=== PATIENT | female | born 1955 | race Caucasian/White ===

== ENCOUNTER 2018-12-01 09:43 | Observation (INO) ==
[2018-12-01] MEDS ORDERED: Lactated Ringers 1,000 ML PRIMARY IV ONE (09:53)
[2018-12-01] MEDS ORDERED: ONDANSETRON 4 MG/2 ML VIAL IVP ONE (09:53)
[2018-12-01] MEDS ORDERED: MORPHINE SULFATE 4 MG/1 ML IVP ONE (09:53)
[2018-12-01] MEDS ORDERED: Acetaminophen 1000mg Inj 1,000 MG/100 ML VIAL IV PRN (10:00)
--- NOTE | 2018-12-01 10:00 | PDOC ---
Abdomen/Flank HPI - General Chief Complaint: Abdomen Pain Stated Complaint: LLQ PAIN Date Seen by Provider: 12/01/18 Time Seen by Provider: 09:45 Source: POSITIVE: Patient Exam Limitations: POSITIVE: No limitations Nurse's Notes Reviewed & Considered: Yes - Record Incomplete EMS Report Reviewed & Considered: Verbal - History of Present Illness Initial Comments: 63-year-old female presents Emergency Department with complaints of left lower quadrant abdominal pain for the past 2 days. It is progressively getting worse. She reports nausea and vomiting with this pain. She has had 2 episodes of vomiting in the last 24 hours. Patient initially went to the urgent care clinic and they sent her to the emergency department via ambulance. In the urgent care, they did a urine dip which showed blood and leukocytes. She denies fevers or chills. She denies rhinorrhea/congestion/earache/sore throat. She denies chest pain/shortness of breath/cough. She denies diarrhea or constipation. She denies history of kidney stones. Body Location Affected: REPORTS: Abdomen Timing: REPORTS: Constant, Getting Worse Duration: >24 hours (2 days) Severity: Severe Quality: REPORTS: Cramping, Sharpness, Throbbing Abdominal Pain Onset Location: REPORTS: RLQ Abdominal Pain Radiation: REPORTS: No radiation Modifying Factors: improves with: Vomiting, Urinating. worse with: Defecating Associated Symptoms: REPORTS: Nausea, Vomiting, Dysuria. DENIES: Chest pain, Fever, Grossly Bloody Diarrhea, Diarrhea, Mucous Diarrhea Similar Symptoms Previously: No Recent Care Received: REPORTS: Denies - Patient Home Medications Home Medications: Home Medications NK 04/12/18 - Patient Allergies Allergies/Adverse Reactions: Allergies Allergy/AdvReac Type Severity Reaction Status Date / Time Penicillins Allergy Headache Verified 12/01/18 10:10 PAIN MEDS AdvReac Intermediate Nausea and Uncoded 12/01/18 10:10 Vomiting Past Medical History - heen HEENT History: Denies History Cardiovascular History: Denies History Respiratory History: Denies History Genitourinary History: Denies History Endocrine History: Denies History Musculoskeletal History: Denies History Neurological History: Denies History Blood Disorders: Denies History Psychiatric History: Denies History Female Reproductive History: Breast Surgery (include type of surgery in additional comments) (massectomy with reconstruction for cancer) Cancer History: Breast Tobacco Use: Never Smoker Alcohol Use: Rarely Type of alcohol normally used: Wine In the Past 12 Months, Have Used or Abuse Any Substance: None Previous Surgical History: Yes Type / Date of Surgery: appy, massectomy, breast reconstruction ROS - Limitations ROS Limitations: No Limitations Constitution: REPORTS: Denies Symptoms Cardiovascular: REPORTS: Denies Cardiac Symptoms Respiratory: REPORTS: Denies Resp Symptoms Neurological: REPORTS: Denies Neuro Symptoms Gastrointestinal: REPORTS: Abdominal Pain, Nausea, Vomitting. DENIES: Diarrhea, Constipation Endocrine: REPORTS: Denies Symptoms Musculoskeletal: REPORTS: Denies MS Symptoms Genitourinary: REPORTS: Dysuria. DENIES: Discharge, Flank Pain, Hematuria, Difficulty Urinating Eyes: REPORTS: Denies Symptoms ENT: REPORTS: Denies Symptoms Skin: REPORTS: Denies Skin Symptoms Lympathic: REPORTS: Denies Lympathic Symptoms Immunologic: POSITIVE: Denies Symptoms Psychiatric: POSITIVE: Denies Psych Symptoms Abdominal/Flank Pain PE - General Appearance General Appearance: POSITIVE: Alert, Cooperative, No Evidence of Trauma, Severe Distress - HEENT HEENT: POSITIVE: Head Inspection Nml, Eyes Inspection Nml, Ears Inspection Nml, Nose Inspection Nml, Pharynx Inspect. Nml, PERRL, EOMI, Dry Mucous Membranes - Neck Neck: POSITIVE: Normal Inspection, No Apparent Injury - Respiratory Respiratory: POSITIVE: No Respiratory Distress, Breath Sounds Normal, Chest Non- Tender - Cardiovascular Cardiovascular: POSITIVE: Regular Rate and Rhythm, Heart Sounds Normal, Equal Pulses Peripheral Pulses: Radial (R): 2+, Radial (L): 2+ - Chest Chest: POSITIVE: Non Tender - Abdomen Abdomen: Soft: (All Quadrants), Normal Bowel Sounds: (All Quadrants), Denies Tenderness: (LUQ), (RUQ), Tenderness Noted: (LLQ), (RLQ), Guarding: (LLQ), (RLQ), Rebound: (RLQ), (LLQ) - Back Back: POSITIVE: Normal Inspection. NEGATIVE: CVA Tenderness (R), CVA Tenderness (L) - Skin Skin: POSITIVE: Intact, Normal For Race, Warm, Dry - Extremities Extremity: Non-Tender: (All Extremities), Normal ROM: (All Extremities), Normal Inspection: (All Extremities) - Neurological Neurological: POSITIVE: Affect Apporpriate, Oriented X3, Motor Normal, Sensation Normal - Psychological Psychiatric: POSITIVE: Affect Appropriate, Mood Appropriate Abdomen Progress - Results Reviewed by me Xrays/CTs/US Reviewed by me: Yes Discussed with Radiologist: Yes (Discussed with Dr. Chen, he does not feel there is free air. He feel) Radiology Findings: By my interpretation shows diverticulitis of sigmoid colon and soft tissue lesion, likely teratoma Lab Results Reviewed by Me: Yes CBC and BMP: 12/01/18 09:30 12/01/18 09:30 - Patient's Progress Pain Medication Addressed: POSITIVE: Yes Re-examine Time: 11:17 Re-Examine Comment: Patient still having pain but it is improved. Discussed results with patient and my recommendation for admission. She is amenable to plan. Will consult general surgery and hospitalist. Re-Examine Time: 11:40 Re-Examine Comment: Discussed case with radiology. They do not feel there is perforation with diverticulitis. Therefore hospitalist will admit. Dr. Chen from general surgery will also consult. Patient also informed of soft tissue lesion near area of diverticulitis that will likely need surgical resection in future Re-Examine Comment: Patient given rocephin and flagyl for acute diverticulitis. Status: POSITIVE: Unchanged MDM / ED Course: IV line established by nursing staff. Will give bolus of fluids, IV pain medication and IV zofran. Patient doesn't want narcotics at this point so therefore will give IV tylenol. Will obtain UA, serum labs and CT of abdomen/pelvis. - Consult Consult (If Yes, Name of Consulting MD & Time Called): Yes (Dr. Chen) Consulting MD will see pt:: POSITIVE: [facility] [place] Admit Counseled: POSITIVE: Patient, Family, RE: Lab Results, RE: Radiology Results, RE: DX Patient Care Time - Estimated PCT Patient Care Time (In Minutes): 65 Vital Signs - VS Reviewed Vital Signs Reviewed: Yes Discharge Clinical Impression: Abdominal pain, Nausea and vomiting, Leukocytosis, Dehydration, Perforated diverticulum of large intestine, Intraabdominal mass Discharge Disposition: Admit to Inpatient Condition: Fair Follow Up With: JONAH HUBER FNP [Primary Care Provider] - Care Transferred To: Dr. Kaufman Date Decision to Admit to Inpatient: 12/01/18 Time Decision to Admit to Inpatient: 11:20
[2018-12-01 10:07] LABS: BASOPHILS # (AUTO) 0.02 10*3/UL; BASOPHILS % (AUTO) 0.2 % (0-1); EOSINOPHILS # (AUTO) 0.02 10*3/UL; EOSINOPHILS % (AUTO) 0.2 % (0-8); Hematocrit [HCT] 41.2 % (37.0-47.0); Hemoglobin [HGB] 14.1 g/dL (12.0-16.0); MEAN CORPUSCULAR HEMOGLOBIN 27.8 PG (27-31); MEAN CORPUSCULAR HGB CONC 34.2 g/dL (33-37); MEAN CORPUSCULAR VOLUME 81.3 FL (81-99); MEAN PLATELET VOLUME 9.9 FL (7.4-12.2); MONOCYTES # (AUTO) 0.41 10*3/UL (0.3-0.8); MONOCYTES % (AUTO) 3.7 % (5-15); NEUTROPHILS # (AUTO) 9.66 10*3/UL; NEUTROPHILS % (AUTO) 87.5 % (50-80); RED BLOOD COUNT 5.07 10^6/uL (4.20-5.40)
[2018-12-01 10:12] LABS: BLOOD UREA NITROGEN 13 mg/dL (7-22); BUN/CREATININE RATIO 18.57 (6-20); SERUM ALBUMIN 4.3 g/dL (3.5-4.8)
[2018-12-01 10:22] LABS: PLATELET MORPHOLOGY COMMENT NORMAL MORPHOLOGY (NORM); RBC MORPHOLOGY COMMENT SEE COMMENTS (NORM); WBC MORPHOLOGY COMMENT NORMAL MORPHOLOGY (NORM)
[2018-12-01 10:39] LABS: BILIRUBIN,URINE NEGATIVE (NEG); CLARITY,URINE CLEAR (CLEAR); COLOR,URINE YELLOW (Y); GLUCOSE, URINE (UA) NEGATIVE (NEG); OCCULT BLOOD,URINE NEGATIVE (NEG); PH,URINE >=9.0 (5.0-8.5); PROTEIN,URINE 30 mg/dl (NEG); UROBILINOGEN,URINE 0.2 EU/dL (0.2)
[2018-12-01 10:50] LABS: BACTERIA,URINE RARE; RBC,URINE 0-3 /hpf; SQUAMOUS EPITHELIAL CELL,UR FEW; URINE SAMPLE TYPE CLEAN CATCH URINE; WBC,URINE 0-3
[2018-12-01] MEDS ORDERED: cefTRIAXone Inj 2 GM in Sodium Chloride 0.9% 100 ML IV ONE (11:11)
[2018-12-01] MEDS ORDERED: metroNIDAZOLE 500mg (Premix) 500 MG/100 ML BAG IV ONE (11:11)
--- NOTE | 2018-12-01 11:27 | DI ---
"CT Abdomen/Pelvis WO Contrast,12/01/2018 9:53 AM: Clinical History: Left lower quadrant abdominal pain Previous Exam: | at this facility. Findings: Multiple helically acquired CT images are obtained through the abdomen and pelvis without contrast, a nd demonstrate an inflamed diverticulum within the left lower quadrant with some mild thickening of t he left peritoneal reflection. There is also a fat density circular mass just superior to the uterus. This measures 4.8 x 4.8 cm in cross-section. The uterus and ovaries are normal. The liver, spleen, pancreas, adrenals and kidneys are unremarkable. Patient is status post cholecyste ctomy. There is a small simple cyst noted within the right lobe of the liver measuring 15 mm. Diffuse degenerative changes of the spine are seen. Impression: 1. Acute sigmoid diverticulitis. There is no abscess nor perforation. 2. Fatty lesion measuring 4.8 cm in diameter. 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 R ecommend gynecological consultation."
[2018-12-01] MEDS ORDERED: HYDROcodone-APAP 5 MG -325 MG TABLET PO PRN (12:48)
[2018-12-01] MEDS ORDERED: LIDOCAINE W/ SODIUM BICARB 0.5 ML SYR SUBD PRN (12:48)
[2018-12-01] MEDS ORDERED: ONDANSETRON 4 MG/2 ML VIAL IVP PRN (12:48)
[2018-12-01] MEDS ORDERED: CALCIUM CARBONATE 500 MG (TUMS) CHEWABLE TABLET PO PRN (12:48)
[2018-12-01] MEDS ORDERED: HYDROmorphone 2 MG/1 ML IVP PRN (12:48)
[2018-12-01] MEDS ORDERED: DOCUSATE 100 MG CAPSULE PO PRN (12:48)
[2018-12-01] MEDS ORDERED: ACETAMINOPHEN 325 MG TABLET PO PRN (12:48)
[2018-12-01] MEDS: Sodium Chloride 0.9% 1,000 ML PRIMARY IV SCH ×2 (13:34→23:04)
--- NOTE | 2018-12-01 13:46 | CONSULT ---
Consult Note - Consult Consult Date: 12/01/18 Reason for Consult: PreOp Consulation : General Surgery Requesting Physician: Dr. Asher Primary Care Provider: DERRICK Garcia - History of Present Illness History of Present Illness: The patient is a healthy 63-year-old female who reports she had the onset of abdominal pain Tuesday night. The pain woke her up during the night. She had no nausea or vomiting. No fever or chills. No diarrhea or constipation. The pain progressed. Last night she did have some nausea and vomiting. She says she had a bladder infection and presented to the open access clinic today. She was referred to the emergency room. She had been diagnosed with acute diver ticulitis I'm asked to see her in consultation. The patient has never had a bout of diverticulitis before. She had a normal colonoscopy at the age of 52. She reports movement markedly increases the pain. The pain is not affected by urinating or having a bowel movement except it might get a little better with a bowel movement. CT scan shows sigmoid diverticulitis. There is pericolonic stranding. There is what appears to be a calcified fecalith. There is some air bubbles near the colon. I reviewed the CT with the radiologist. He does not believe there is a microperforation but just adjacent diverticuli. Patient also has a probable dermoid cyst from the right ovary. There is a round soft tissue mass. That will be evaluated at a later date. Review of Systems - Gastrointestinal Gastrointestinal / Abdominal: REPORTS: Nausea, Vomiting, Abdominal Pain, See HPI Past Medical History Medical History: Breast cancer. Surgical History: Mastectomy with breast reconstruction. Left knee surgery. Appendectomy. Cholecystectomy. Colonoscopy. Tobacco Use: Never Smoker In the Past 12 Months, Have Used or Abuse Any of the Following Substance: None Alcohol Use: None Medication / Allergies Home Medications: Home Medications Medication Instructions Recorded Confirmed Type NK 04/12/18 12/01/18 History Allergies/Adverse Reactions: Allergies Allergy/AdvReac Type Severity Reaction Status Date / Time Penicillins Allergy Headache Verified 12/01/18 10:10 PAIN MEDS AdvReac Intermediate Nausea and Uncoded 12/01/18 10:10 Vomiting Results - Labs CBC and BMP: 12/01/18 09:30 12/01/18 09:30 - Imaging Status: Image Reviewed by Me (And discussed with the radiologist.), Report Rev iewed by Me Exam - Vitals Vital Signs: Vital Signs Temperature 97.7 F Temperature Source Temporal Artery Scan Pulse Rate [Pulse Oximeter 82 Right] Pulse Rate 87 Respiratory Rate 16 Blood Pressure [Left Arm] 170/99 Blood Pressure 117/86 Pulse Ox 91 Oxygen Delivery Method Room Air Height 5 ft 2 in Weight 176 lb 3.2 oz - General General Appearance: Cooperative, Mild Distress - Eye Eye Exam: POSITIVE: No Scleral Icterus - Respiratory Respiratory Exam: POSITIVE: Clear to Auscultation - Bilaterally, Breathing Non Labored - Cardiovascular Cardiovascular Exam: POSITIVE: RRR, No Murmur - GI/Abdominal GI/Abdominal Exam: POSITIVE: Guarding (Left abdomen), Hypoactive Bowel Sounds Additional GI/Abdominal Exam Details: Patient has some right costovertebral angle tenderness. The left abdomen is diffusely tender with voluntary guarding. The side of the abdomen is soft. There is pain referred to the left abdomen with palpation on the right. Not an acute surgical abdomen or a rigid abdomen. - Rectal Rectal Exam: POSITIVE: Deferred - Neurological Neurological Exam: POSITIVE: Alert, Oriented x 3 - Psychiatric Psychiatric Exam: POSITIVE: Normal Affect, Normal Mood Assessment and Plan - Patient Problems (1) Acute diverticulitis Current Visit: Yes Status: Acute Priority: High Onset Date: 11/29/18 Comment: There is a lot of pericolonic stranding and a calcified fecalith. No obvious perforation. Plan is to treat her with appropriate antibiotics. If she fails to improve we'll need to reevaluate with a CT and possibly exploration. If she does well then she will be seen in the office in approximately 2 weeks and plan outpatient colonoscopy in approximately 6 weeks. The above was all been discussed with the patient, her family, and Dr. Asher. All are in agreement to proceed as outlined. Code(s): K57.92 - Diverticulitis of intestine, part unspecified, without perforation or abscess without bleeding (2) Intraabdominal mass Current Visit: Yes Status: Acute Priority: Medium Onset Date: 12/01/18 Comment: Discovered today on CT scan. Needs to be removed. This can be done laparoscopically at a later date. This is consistent with a dermoid cyst of the right ovary per my discussion with the radiologist. Code(s): R19.00 - Intra-abdominal and pelvic swelling, mass and lump, unspecified site
[2018-12-01] MEDS ORDERED: KETOROLAC 15 MG/1 ML VIAL IVP PRN (14:04)
[2018-12-01] MEDS: Ertapenem Inj 1 GM in Sodium Chloride 0.9% 100 ML IV SCH (15:17)
--- NOTE | 2018-12-01 15:24 | PDOC ---
HPI - History of Present Illness Date of Service: 12/01/18 Time of Service: 15:19 Chief Complaint: Abdominal pain History of Present Illness: This is a very pleasant 63-year-old female who presents with abdominal pain about 2 days duration. She states that she had some nausea and vomiting last night, and thought she would have a urine infection and went in for evaluation in urgent care clinic. Essentially the emergency room where she had a CT scan that showed she had sigmoid diverticulitis. She was placed on Rocephin and Flagyl in the emergency room. She denied any fevers, chills, or diarrhea. She had she stated that some pain was relieved with bowel movement. She's never had anything like this happen before and reports a colonoscopy at around age 52 that was negative. Surgery was consulted and we saw the patient together. She has tenderness in her abdomen and some costovertebral angle tenderness on the right side. Patient is not interested in taking narcotics that she gets very sick with them. Antiemetics are helping. Past Medical History Medical History: Breast cancer. Patient states she is up-to-date with her mammogram. Surgical History: Mastectomy with breast reconstruction. Left knee surgery. Appendectomy. Cholecystectomy. Colonoscopy. Pertinent Family History: No family history of heart disease. Past Social History: Patient does not smoke. She does not drink alcohol. Lives here in [place], [place]. Tobacco Use: Never Smoker In the Past 12 Months, Have Used or Abuse Any of the Following Substance: None Alcohol Use: None Medication / Allergies Home Medications: Home Medications Medication Instructions Recorded Confirmed Type NK 04/12/18 12/01/18 History Allergies/Adverse Reactions: Allergies Allergy/AdvReac Type Severity Reaction Status Date / Time Penicillins Allergy Headache Verified 12/01/18 10:10 PAIN MEDS AdvReac Intermediate Nausea and Uncoded 12/01/18 10:10 Vomiting Review of Systems - Review of Systems All Systems: Reviewed & No Additional Complaints Except as Stated (I did a 12 point review systems and it was negative other than that discussed below and in the history of present illness.) - Neurological Neurologic: REPORTS: Headache Exam - Vitals Vital Signs: Vital Signs Temperature 97.7 F Temperature Source Temporal Artery Scan Pulse Rate [Pulse Oximeter 82 Right] Pulse Rate 87 Respiratory Rate 16 Blood Pressure 117/86 Pulse Ox 91 Oxygen Delivery Method Room Air Height 5 ft 2 in Weight 176 lb 3.2 oz - General General Appearance: No Acute Distress, Cooperative - Head Head Exam: Normal Inspection, Normocephalic, Atraumatic - Eye Eye Exam: POSITIVE: No Scleral Icterus - ENT ENT Exam: POSITIVE: Mucous Membranes Moist - Neck Neck Exam: JVP is not Raised - Respiratory Respiratory Exam: POSITIVE: Clear to Auscultation - Bilaterally, Breathing Non Labored, Normal to Percussion and Palpation - Cardiovascular Cardiovascular Exam: POSITIVE: RRR, No Murmur, No Clicks, No Gallops, No Rubs, No JVD - GI/Abdominal GI/Abdominal Exam: POSITIVE: Normal Bowel Sounds, Non Distended, Soft Additional GI/Abdominal Exam Details: Tender to palpation - Rectal Rectal Exam: POSITIVE: Deferred - External Exam: POSITIVE: Deferred Exam: POSITIVE: Deferred - Extremities Extremities Exam: POSITIVE: No Clubbing Present, No Edema Present, No Cyanosis Present - Back Back Exam: POSITIVE: CVA Tenderness (R) - Neurological Neurological Exam: POSITIVE: Alert, Oriented x 3, No Facial Droop, Speech Intact / Clear, Moves All Extremities Equally - Psychiatric Psychiatric Exam: POSITIVE: Normal Affect, Normal Mood Results - Labs CBC and BMP: 12/01/18 09:30 12/01/18 09:30 Assessment and Plan - Patient Problems (1) Sigmoid diverticulitis Current Visit: Yes Status: Acute Code(s): K57.32 - Diverticulitis of large intestine without perforation or abscess without bleeding - Assessment / Plan Additional Assessment/Plan Details: Admit for observation. Surgery consulted. Dr. Chen has seen the patient. IV antibiotics and IV fluids. We are going to hold off on surgery at this time. Ideally, if we can calm this down with IV antibiotics, the hope is that the patient will get well enough to be able to do outpatient colonoscopy several weeks down the road to evaluate the segment further and try and avoid a surgery in the setting of an acute inflamma tory process. Labs in a.m. Pain medications and anti-medics. Patient was in agreement with the plan.
[2018-12-01] MEDS ORDERED: Prochlorperazine Edisylate Inj 10mg/2ml vial IVP PRN (17:15)
[2018-12-01] MEDS: Acetaminophen 1000mg Inj 1,000 MG/100 ML VIAL IV PRN (19:45)
[2018-12-02 04:53] LABS: BASOPHILS # (AUTO) 0.01 10*3/UL; BASOPHILS % (AUTO) 0.1 % (0-1); EOSINOPHILS # (AUTO) 0.04 10*3/UL; EOSINOPHILS % (AUTO) 0.6 % (0-8); Hematocrit [HCT] 36.7 % (37.0-47.0); Hemoglobin [HGB] 12.2 g/dL (12.0-16.0); LYMPHOCYTES # (AUTO) 0.93 10*3/uL; MEAN CORPUSCULAR HEMOGLOBIN 27.6 PG (27-31); MEAN CORPUSCULAR HGB CONC 33.2 g/dL (33-37); MEAN PLATELET VOLUME 10.1 FL (7.4-12.2); MONOCYTES # (AUTO) 0.34 10*3/UL (0.3-0.8); MONOCYTES % (AUTO) 4.9 % (5-15); NEUTROPHILS # (AUTO) 5.62 10*3/UL; NEUTROPHILS % (AUTO) 80.9 % (50-80); RED BLOOD COUNT 4.42 10^6/uL (4.20-5.40)
[2018-12-02 05:04] LABS: BLOOD UREA NITROGEN 8 mg/dL (7-22); BUN/CREATININE RATIO 13.33 (6-20); SERUM ALBUMIN 3.1 g/dL (3.5-4.8)
[2018-12-02 05:08] LABS: PLATELET MORPHOLOGY COMMENT NORMAL MORPHOLOGY (NORM); RBC MORPHOLOGY COMMENT NORMAL MORPHOLOGY (NORM); WBC MORPHOLOGY COMMENT NORMAL MORPHOLOGY (NORM)
[2018-12-02] MEDS: Acetaminophen 1000mg Inj 1,000 MG/100 ML VIAL IV PRN ×2 (06:38→17:42)
[2018-12-02] MEDS ORDERED: POTASSIUM CHLORIDE 20 MEQ TAB PO ONE (09:10)
[2018-12-02] MEDS: Sodium Chloride 0.9% 1,000 ML PRIMARY IV SCH ×2 (09:47→19:02)
--- NOTE | 2018-12-02 14:47 | PDOC(PROG) ---
Date of Service: 12/02/18 Time of Service: 14:43 Interval History: patient seen, evaluated earlier today. no chest pain, no SOB had some nausea, but no vomiting. abdominal pain is better, not completely resolved no fevers. Objective : Data - Labs CBC and BMP: 12/02/18 04:20 12/02/18 04:20 Objective : Exam - General General Appearance: No Acute Distress, Cooperative Additional General Exam Details: Vital Signs - Last Taken Temperature 97.4 F 12/02/18 11:52 Pulse Rate 70 12/02/18 11:52 Respiratory Rate 18 12/02/18 11:52 Blood Pressure 154/81 12/02/18 11:52 Pulse Ox 93 12/02/18 11:52 - Eye Eye Exam: No Scleral Icterus - ENT ENT Exam: Mucous Membranes Moist - Neck Neck Exam: JVP is not Raised - Respiratory Respiratory Exam: Clear to Auscultation - Bilaterally, Breathing Non Labored - Cardiovascular Cardiovascular Exam: RRR, No Murmur, No Clicks, No Gallops, No Rubs, No JVD - GI/Abdominal GI/Abdominal Exam: Normal Bowel Sounds, Non Distended, Soft Additional GI/Abdominal Exam Details: tender LLQ - Extremities Extremities Exam: No Clubbing Present, No Edema Present, No Cyanosis Present - Neurological Neurological Exam: Alert, Oriented x 3, No Facial Droop, Speech Intact / Clear, Moves All Extremities Equally - Psychiatric Psychiatric Exam: Normal Affect, Normal Mood Assessment and Plan - Patient Problems (1) Sigmoid diverticulitis Current Visit: Yes Status: Acute Code(s): K57.32 - Diverticulitis of large intestine without perforation or abscess without bleeding - Assessment / Plan Additional Assessment/Plan Details: overall better, but still with abdominal pain advanced diet this morning Invanz, day #2 of antibiotics today. labs in AM if patient about the same or better in AM, probably home with a few more days IV antibiotics and then levaquin/flagyl, 14 days total of antibiotics anticipated replace potassium
[2018-12-02] MEDS: Ertapenem Inj 1 GM in Sodium Chloride 0.9% 100 ML IV SCH (15:14)
[2018-12-02] MEDS: POTASSIUM CHLORIDE 20 MEQ TAB PO SCH (17:08)
[2018-12-02] MEDS ORDERED: Diphenoxylate/Atropine 2.5/0.025 mg Tab PO PRN (23:29)
[2018-12-03] MEDS: Sodium Chloride 0.9% 1,000 ML PRIMARY IV SCH ×2 (03:16→05:31)
[2018-12-03 04:50] LABS: BASOPHILS # (AUTO) 0.01 10*3/UL; BASOPHILS % (AUTO) 0.2 % (0-1); EOSINOPHILS # (AUTO) 0.08 10*3/UL; EOSINOPHILS % (AUTO) 1.4 % (0-8); Hematocrit [HCT] 34.8 % (37.0-47.0); Hemoglobin [HGB] 11.6 g/dL (12.0-16.0); LYMPHOCYTES # (AUTO) 1.21 10*3/uL; MEAN CORPUSCULAR HEMOGLOBIN 27.9 PG (27-31); MEAN CORPUSCULAR HGB CONC 33.3 g/dL (33-37); MEAN CORPUSCULAR VOLUME 83.7 FL (81-99); MEAN PLATELET VOLUME 10.2 FL (7.4-12.2); MONOCYTES # (AUTO) 0.31 10*3/UL (0.3-0.8); MONOCYTES % (AUTO) 5.5 % (5-15); NEUTROPHILS # (AUTO) 4.05 10*3/UL; NEUTROPHILS % (AUTO) 71.4 % (50-80); RED BLOOD COUNT 4.16 10^6/uL (4.20-5.40)
[2018-12-03 04:55] LABS: PLATELET MORPHOLOGY COMMENT NORMAL MORPHOLOGY (NORM); RBC MORPHOLOGY COMMENT NORMAL MORPHOLOGY (NORM); WBC MORPHOLOGY COMMENT NORMAL MORPHOLOGY (NORM)
[2018-12-03 05:04] LABS: BLOOD UREA NITROGEN 6 mg/dL (7-22)
[2018-12-03] MEDS: POTASSIUM CHLORIDE 20 MEQ TAB PO SCH (08:13)
[2018-12-03] MEDS ORDERED: Potassium Chloride Tab 10 MEQ TAB PO ONE (08:50)
[2018-12-03 11:31] VITALS: BP 147/91; RESP 18; TEMP 98.1; O2SAT 93
--- NOTE | 2018-12-03 13:47 | DCSUMMARY ---
"Hospitalization Summary Admit Date: 12/01/2018 Discharge Date: 12/03/18 Primary Diagnosis:: sigmoid diverticulitis Hospital Course: This very pleasant 63-year-old female with history of breast cancer, right- sided, status post chemotherapy, mastectomy and lymph node dissection, with eventual reconstruction, who presented with the left lower quadrant abdominal pain, and findings consistent with sigmoid diverticulitis on CT scan. She was admitted, placed on IV antibiotics, and surgical consult was obtained. She was placed on Invanz, 1 g IV every 24 hours. Her pain improved to the hospital stay, and she was able to tolerate a regular diet prior to discharge. She did not have any fevers. She did develop diarrhea, which was improved with Lomotil and it was negative for C. difficile. Overall, there was a question whether or not a microperforation might exist, but that did not change her management. The plan was to try to treat this with IV antibiotics, but the inflammation and infection calmed down, proceed with a later date colonoscopy for further evaluation. We did find evidence of a teratoma as well. Dr. Hood plans on discussing this further with the patient at follow-up. Today, no chest pain, no shortness breath, no nausea and vomiting and abdominal pain has improved. Assessment and Plan: 1. As per discharge assessments noted 2. Disposition: Patient is discharged home. 3. Condition on discharge, stable and improved. 4. Diet: regular diet 5. Activities: resume normal activities 6. Follow-Up: 1. Dr. Hood in the next 2 weeks 7. Medications at the Time of Discharge: Home Medications Medication Instructions Recorded Confirmed Type Levofloxacin Tab [Levaquin Tab] 750 mg PO DAILY #8 tab 12/03/18 Rx metroNIDAZOLE Tab [Flagyl Tab] 500 mg PO Q8H #24 tab 12/03/18 Rx The patient will remain on invanz, 1 gram IV every 24 hours about 3 PM daily, through 12/06/2018, and then she'll start Levaquin and Flagyl at that point. This will be a total of 14 days of antibiotics. I did disclose to the patient potential issues with Levaquin therapy in terms of tendinopathy's, psychosis, and other potential side effects. Exam - Vitals Vital Signs: Vital Signs Vital Signs - Last Taken Temperature 98.1 F 12/03/18 11:29 Pulse Rate 69 12/03/18 11:29 Respiratory Rate 18 12/03/18 11:29 Blood Pressure 147/91 12/03/18 11:29 Pulse Ox 93 12/03/18 11:29 - General General Appearance: No Acute Distress, Cooperative - Head Head Exam: Normal Inspection, Normocephalic, Atraumatic - Eye Eye Exam: POSITIVE: No Scleral Icterus - ENT ENT Exam: POSITIVE: Mucous Membranes Moist - Neck Neck Exam: JVP is not Raised - Respiratory Respiratory Exam: POSITIVE: Clear to Auscultation - Bilaterally, Breathing Non Labored - Cardiovascular Cardiovascular Exam: POSITIVE: RRR, No Murmur, No Clicks, No Gallops, No Rubs, No JVD - GI/Abdominal GI/Abdominal Exam: POSITIVE: Normal Bowel Sounds, Non Tender, Non Distended, Sof t - Extremities Extremities Exam: POSITIVE: No Clubbing Present, No Edema Present, No Cyanosis Present - Neurological Neurological Exam: POSITIVE: Alert, Oriented x 3, No Facial Droop, Speech Intact / Clear, Moves All Extremities Equally Data Peritnent Studies: 12/01/18 12/01/18 12/02/18 09:30 09:53 04:20 WBC 11.03 H Hgb Hct Plt Count Sodium Potassium Chloride Carbon Dioxide Anion Gap BUN Creatinine Estimated GFR BUN/Creatinine Ratio Glucose Calculated Osmolality Calcium Magnesium Total Bilirubin 0.4 AST 59 H ALT 83 H D Alkaline Phosphatase 85 Total Protein 5.3 L Albumin 3.1 L Globulin 2.2 L Albumin/Globulin Ratio 1.40 Ur Culture Indicated? Culture not set 12/03/18 12/03/18 04:24 04:24 WBC 5.67 Hgb 11.6 L Hct 34.8 L Plt Count 201 Sodium 140 Potassium 3.7 L Chloride 115 H Carbon Dioxide 24 Anion Gap 1 L BUN 6 L Creatinine 0.6 Estimated GFR > 60 BUN/Creatinine Ratio 10.00 Glucose 91 Calculated Osmolality 287.0 Calcium 8.0 L Magnesium 2.1 Total Bilirubin AST ALT Alkaline Phosphatase Total Protein Albumin Globulin Albumin/Globulin Ratio Ur Culture Indicated? Procedures: [address] [facility] [place] [address] PH: DD: [phone] FAX: [phone] ~DIAGNOSTIC IMAGING REPORT~ Patient: HIRAM BARNETT : 1955 Sex: F Age: 63 Exam Name: CT Abdomen/Pelvis WO Contrast Exam Date: 12/01/18 Report # : [id number] CPT Code: 09234 EMR/MR #: [id number] Ordering: Omar Osman Admiting: Primary: DERRICK Garcia Attending: Signed CT Abdomen/Pelvis WO Contrast,12/01/2018 9:53 AM: Clinical History: Left lower quadrant abdominal pain Previous Exam: | at this facility. Findings: Multiple helically acquired CT images are obtained through the abdomen and pelvis without contrast, and demonstrate an inflamed diverticulum within the left lower quadrant with some mild thickening of the left peritoneal reflection. There is also a fat density circular mass just superior to the uterus. This measures 4.8 x 4.8 cm in cross-section. The uterus and ovaries are normal. The liver, spleen, pancreas, adrenals and kidneys are unremarkable. Patient is status post cholecystectomy. There is a small simple cyst noted within the right lobe of the liver measuring 15 mm. Diffuse degenerative changes of the spine are seen. Impression: 1. Acute sigmoid diverticulitis. There is no abscess nor perforation. 2. Fatty lesion measuring 4.8 cm in diameter. 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 Recommend gynecological consultation. Dictated By: 12/01/18 1110 SAMANTHA HOOD MD. Signed By: 12/01/18 1127 SAMANTHA HOOD MD. Patient Problems - Patient Problem List (1) Sigmoid diverticulitis Current Visit: Yes Status: Acute Code(s): K57.32 - Diverticulitis of large intestine without perforation or abscess without bleeding Category: Medical (2) Ovarian teratoma Current Visit: Yes Status: Suspected Code(s): D27.9 - Benign neoplasm of unspecified ovary Qualifiers: Laterality: right Qualified Code(s): D27.0 - Benign neoplasm of right ovary Category: Medical (3) History of breast cancer Current Visit: Yes Status: Acute Code(s): Z85.3 - Personal history of malignant neoplasm of breast Category: Medical"
[2018-12-03] MEDS: Ertapenem Inj 1 GM in Sodium Chloride 0.9% 100 ML IV SCH (15:01)
== END 2018-12-03 16:22 | disposition home or self-care (01) ==
LOC: MED/SURG 09:43 → ER 09:43 → MED/SURG 12:45
PROVIDERS: ADMIT Family Medicine; ATTEND Family Medicine